=== PATIENT | female | born 1940 | race Caucasian/White ===

== ENCOUNTER 2019-01-09 19:26 | Inpatient (IN) | payer MEDICARE, OTHER ==
--- NOTE | ~2019-01-09 | HEMODYNAMI ---
PATIENT:ALEIDA COOL MEDICAL RECORD: [id number] : 40 LOCATION:[facility] D.2117 ADMISSION DATE: 01/10/19 Generatedon:01/10/201916:32 Patient name: ALEIDA COOL Patient #: [id number] SSN: DO B: 1940 Date of study: 01/10/2019 Page: Of Hemodynamic Procedure Report Patient Data Patient Demographics Procedure consent was obtained First Name: ALEIDA Gender: Female Last Name: TRAVON : 1940 Patient #: [id number] Age: 78 year(s) Race: Unknown Additional ID: [id number] Contact details Address: [address] [place] [address] State: [place] City: [place] Zip code: [address] Past Medical History Allergies Allergen Reaction Date Comments Reported Tetracycline 01/10/2019 Admission Admission Data Admission Date: 01/10/2019 Admission Time: 15:12 Room #: D.2117 Height (in.): 65 BSA: 2.02 (m2) Height (cm.): 165.1 BMI: 34.85 (kg/m2) Weight (lbs.): 209.44 Weight (kg.): 95 Lab Results Lab Result Date: 01/10/2019 Lab Result Time: 0:00 Biochemistry Name Units Result Min Max BUN mg/dl 18 --(---*)-- 7 18 Creatinine mg/dl 0.9 --(-*--)-- 0.6 1.3 CBC Name Units Result Min Max Hematocrit % 35.7 *-(----)-- 42 54 Hemoglobin g/dl 11.9 *-(----)-- 13.5 17.5 Procedure Procedure Types Cath Procedure Diagnostic Procedure [facility] w/Coronaries Sedation Charges Moderate Sedation up to 15 minutes PCI Procedure Coronary Stent Coronary Stent Initial Procedure Description Procedure Date Procedure Date: 01/10/2019 Procedure Start Time: 16:13 Procedure End Time: 16:31 Procedure Staff Name Function Issac Diamond MD Performing Physician Ammy Chen RT Monitor Marc De León RT Scrub Omayra Johns RN Nurse Procedure Data Cath Procedure Fluoroscopy Diagnostic fluoroscopy Total fluoroscopy Time: 4.2 time: 4.2 min min Diagnostic fluoroscopy Total fluoroscopy dose: 698 dose: 698 mGy mGy Contrast Material Contrast Material Type Amount (ml) Isovue 300 95 Entry Location Entry Primary Successful Side Size Upsize Upsize Entry Closure Hunter ccessful Closure Location (Fr) 1 (Fr) 2 (Fr) Remarks Device Remarks Radial Right 6 Fr Mechanical artery Short Compression Estimated blood loss: 10 ml Diagnostic catheters Device Type Used For End Catheter Placement DIAGNOSTIC [place] 110cm 5 Procedure Fr catheter ([id number]) Procedure Complications No complications Procedure Medications Medication Administration Route Dosage Oxygen etCO2 Nasal cannula 2 l/min Lidocaine 2% added to field 20 Heparin Flush Bag added to field 2 bags (1000units/500ml NS) 0.9% NaCl I.V. 100 ml/hr Radial Cocktail I.A. 1 syringe (Verapamil 2mg/Nitro 400mcg/Heparin 1500units) Versed I.V. 1 mg Fentanyl I.V. 50 mcg Versed I.V. 1 mg Fentanyl I.V. 50 mcg Heparin Bolus I.V. 4000 units Hemodynamics Rest BSA: 2.02 (m2) HGB: 11.9 (g/dl) O2 Consumption: Estimated: 180.2 (ml/min) O2 Con sumption indexed: Estimated:89.21 (ml/min/m) Heart Rate: 67 (bpm) Snapshots Pre Cath Intra NCS Post Cath Vital Signs Time Heart Resp SPO2 etCO2 NIBP (mmHg) Rhythm Pain Sedation Rate (ipm) (%) (mmHg) Status Level (bpm) 16:03:49 68 16 97 31.9 181/87(152) NSR 0 (11) 10(A) , No pain 16:08:13 66 11 95 34.8 154/74(122) NSR 0 (11) 10(A) , No pain 16:12:25 64 15 95 37.1 140/79(117) NSR 0 (11) 9(A) , No pain 16:16:37 64 14 95 14.8 115/63(88) NSR 0 (11) 9(A) , No pain 16:20:39 65 15 95 16.7 129/67(118) NSR 0 (11) 9(A) , No pain 16:25:40 67 14 94 14.8 155/81(118) NSR 0 (11) 10(A) , No pain 16:29:50 67 11 95 34.1 166/87(138) NSR 0 (11) 10(A) , No pain Medications Time Medication Route Dose Verified Delivered Reason Not es Effectiveness by by 16:03:37 Oxygen etCO2 2 l/min Issac Buffie used for Nasal Dara Johns RN procedure cannula 16:04:00 Lidocaine 2% added 20ml Issac Issac for local to vial Dara Diamond MD anesthetic field 16:04:07 Heparin Flush added 2 bags Issacrachel Davenport used for Bag to Dara Diamond MD procedure (1000units/500ml field NS) 16:04:22 0.9% NaCl I.V. 100 Issac Cutler Per physician ml/hr Dara Johns RN 16:10:32 Versed I.V. 1 mg Issac Cutler for sedation Dara Johns RN 16:10:37 Fentanyl I.V. 50 mcg Issac Cutler for sedation Dara Johns RN 16:14:36 Radial Cocktail I.A. 1 Issac Issac for (Verapamil syringe Dara Diamond MD vasodilation 2mg/Nitro 400mcg/Heparin 1500units) 16:19:24 Versed I.V. 1 mg Issac Clarkeie for sedation Dara Johns RN 16:19:28 Fentanyl I.V. 50 mcg Issac Cutler for sedation Dara Johns RN 16:19:36 Heparin Bolus I.V. 4000 Issac Clarkeie for selina ified units Dara Johns RN anticoagulation with dr diamond Procedure Log Time Note 15:36:38 Signed procedure consent form obtained from patient. 15:36:39 Diagnostic Cath status Urgent 15:36:40 Time tracking: Regular hours (M-F 7:00 - 5:00) 15:36:45 Plan of Care:Hemodynamics will remain stable., Cardiac rhythm will remain stable., Comfort level will be maintained., Respiratory function will remain adequate., Patient/ family verbilizes understanding of procedure., Procedure tolerated without complication., Recovers from procedure without complications.. 15:37:51 Marc De León RT(R) sent for patient. Start room use. 15:40:38 Lab Result : BUN 18 mg/dl 15:40:38 Lab Result : Creatinine 0.9 mg/dl 15:40:38 Lab Result : Hemoglobin 11.9 g/dl 15:40:38 Lab Result : Hematocrit 35.7 % 15:40:59 Patient allergic to Tetracycline 15:41:15 Patient Weight : 209.44 lbs 15:41:19 Patient Height : 65 inches 15:54:28 Patient received from Med/Surg to CCL 1 Alert and oriented. Tansferred to table in Supine position. 15:54:30 Warm blankets applied, and abelardo hugger turned on for patient comfort. 15:54:31 Correct patient and procedure confirmed by team. 15:54:32 ECG and BP/O2 sat monitors applied to patient. 16:01:37 Vital chart was started 16:03:37 Oxygen 2 l/min etCO2 Nasal cannula was administered by Omayra Johns RN; used for procedure; 16:04:00 Lidocaine 2% 20ml vial added to field was administered by Issac Diamond MD; for local anesthetic; 16:04:07 Heparin Flush Bag (1000units/500ml NS) 2 bags added to field was administered by Issac Diamond MD; used for procedure; 16:04:22 0.9% NaCl 100 ml/hr I.V. was administered by Omayra Johns RN; Per physician; 16:05:55 Baseline sample Acquired. 16:05:58 Rhythm: sinus rhythm 16:06:00 Full Disclosure recording started 16:06:01 Pre-procedure instructions explained to patient. 16:06:02 Pre-op teaching completed and patient verbalized understanding. 16:06:04 Family in patients room. 16:06:11 Patient NPO since Midnight. 16:06:14 Is patient on blood thinner?Yes 16:06:20 ACC The patient was administered the following blood thiners within the last 24 hours: ACCPlavix 16:06:23 Patient diabetic? Yes. 16:06:24 If diabetic: On Metformin? Yes 16:06:27 If on Metformin: Last Dose? 01/09/2019 16:06:32 Previous problem with sedation/anesthesia? No ? 16:06:34 Snore? Yes 16:06:36 Sleep apnea? No 16:06:37 Deviated septum? No 16:06:49 Opens mouth fully? Yes 16:06:50 Sticks out tongue? Yes 16:06:53 Airway obstruction? No ? 16:06:56 Dentures? No ? 16:07:01 Modified Florentino's test Ulnar < 7 seconds 16:07:04 Patient pain scale 0/10 ?. 16:07:08 IV patent on arrival in left antecubital with 0.9% NaCl at [facility]. 16:07:11 Lab results completed and on chart. 16:07:15 Right Radial & Right Groin area was prepped with chlora-prep and draped in sterile fashion 16:07:15 Alarms reviewed by R. N. 16:07:16 Sharps counted by scrub and verified by R.N. 16:07:19 Use device set Radial Dx or PCI 16:07:20 ACIST Syringe (97578) opened to sterile field. 16:07:22 Bag Decanter (2002S) opened to sterile field. 16:07:23 ACIST Hand Control (29494) opened to sterile field. 16:07:23 ACIST Manifold (40391) opened to sterile field. 16:07:24 Tegaderm 4 x 4 (1626W) opened to sterile field. 16:07:26 Medline Cath Pack ([id number]) opened to sterile field. 16:07:26 DIAGNOSTIC WIRE .035 260cm J wire (001941) opened to sterile field. 16:07:27 MBrace Wrist Support ([id number]) opened to sterile field. 16:07:28 SHEATH 6FR Slender (801060) opened to sterile field. 16:10:21 --------ALL STOP TIME OUT------ 16:10:22 Final Timeout: patient, procedure, and site verified with staff and physician. All members of the team are in agreement. 16:10:23 Right Radial & Right Groin site verified by team. 16:10:26 Maximum allowable Isovue 300 dose 300ml. Physician notified. (300ml for normal creatinines. For patients with creatinine of 1.7 or higher multiply weight(kg) x 5 divided by creatinine.) 16:10:31 Fire Safety Assessment: A--An alcohol-based skin anteseptic being used preoperatively., C--Open oxygen or nitrous oxide is being used., D--An ESU, laser, or fiber-optic light is being used. 16:10:32 Versed 1 mg I.V. was administered by Omayra Johns RN; for sedation; 16::34 Physical assessment completed. ASA score P 2 - A patient with mild systemic disease as per Issac Diamond MD. 16:10:37 Fentanyl 50 mcg I.V. was administered by Omayra Johns RN; for sedation; 16:10:37 Sedation plan: IV Moderate Sedation Medication:Versed, Fentanyl 16:13:24 Procedure started. 16:13:28 Zero performed for pressure channel P1 16:13:38 Local anesthetic to right radial artery with Lidocaine 2% by Issac Diamond MD.INITIAL ACCESS ONLY 16:13:57 A 6 Fr Short sheath was inserted into the Right Radial artery 16:14:29 A DIAGNOSTIC [place] 110cm 5 Fr catheter ([id number]) was advanced over the wire and used for Procedure. 16:14:36 Radial Cocktail (Verapamil 2mg/Nitro 400mcg/Heparin 1500units) 1 syringe I.A. was administered by Issac Diamond MD; for vasodilation; 16:15:16 LV gram done using RAY 16:15:18 Injector settings: Ml/sec: 5, Volume: 15, 16:15:32 EF : 55 % 16:16:34 LCA angiography performed. 16:17:03 RCA angiography performed. 16:17:06 Catheter exchanged over wire. 16:18:24 GUIDE 6FR AR 2.0 SH catheter ([id number]) opened to sterile field. 16:18:31 INFLATOR Merit BasixCompak (DE2150) opened to sterile field. 16:18:31 CHOICE PT Extra Support 182cm wire ([id number]) opened to sterile field. 16:18:42 6 Fr AR 2 SH guide catheter was inserted over the wire 16:19:24 Versed 1 mg I.V. was administered by Omayra Johns RN; for sedation; 16::28 Fentanyl 50 mcg I.V. was administered by Omayra Johns RN; for sedation; 16:19:34 CHOICE ES 182 wire advanced. 16:19:36 Heparin Bolus 4000 units I.V. was administered by Omayra Johns RN; for anticoagulation; verified with dr diamond 16:19:36 Wire advanced across lesion. 16:21:01 Inflate balloon Inflation number: 1 A EUPHORA 2.5 x 30 Balloon ([id number]) was prepped and advanced across the Mid RCA , then inflated to 9 TAMMI for 0:00 (min:sec) . 16:21:15 Inflation number: 2 The EUPHORA 2.5 x 30 Balloon ([id number]) was reinflated across the Mid RCA , to 11 TAMMI for 0:00 (min:sec) . 16:21:21 Balloon removed over the wire. 16:23:01 Place stent Inflation Number: 3 A FRIDA RX 2.5 x 38 stent ([id number]) was prepped and advanced across the Mid RCA . The stent was deployed at 13 TAMMI for 0:00 (min:sec) . 16:23:20 Stent catheter was removed intact over wire. 16:24:37 Place stent Inflation Number: 4 A FRIDA RX 2.5 x 18 stent ([id number]) was prepped and advanced across the Mid RCA . The stent was deployed at 13 TAMMI for 0:00 (min:sec) . 16:25:12 Stent catheter was removed intact over wire. 16:26:41 Place stent Inflation Number: 5 A FRIDA RX 2.5 x 30 stent ([id number]) was prepped and advanced across the Mid RCA . The stent was deployed at 19 TAMMI for 0:00 (min:sec) . 16:27:49 Stent catheter was removed intact over wire. 16:27:51 Wire removed. 16:27:52 Guide catheter removed. 16:28:13 TR BAND Standard ([id number]) opened to sterile field. 16:28:20 Sheath removed intact; hemostasis achieved with Mechanical Compression to the Right Radial artery. 16:28:22 Procedure ended.(Physican Out) 16:29:46 Fluoroscopy time 04.20 minutes. 16:29:50 Fluoroscopy dose: 698 mGy 16:29:50 Flurop Dose total: 698 16:29:54 Contrast amount:Isovue 300 95ml. 16:29:55 Sharps counted by scrub and verified by R.N. 16:29:57 TR band inflated with 12cc of air. 16:30:00 Post-procedure physical assessment completed. ASA score P 2 - A patient with mild systemic disease as per Issac Diamond MD. 16:30:03 Post procedure rhythm: sinus rhythm 16:30:06 Estimated blood loss: 10 ml 16:30:14 Post procedure instruction explained to patient.Patient verbalizes understanding. 16:30:14 Patient needs reinforcement of post procedure teaching. 16:30:34 Procedure type changed to Cath procedure, Diagnostic procedure, LHC, LHC w/Coronaries, Sedation Charges, Moderate Sedation up to 15 minutes, PCI procedure, Coronary Stent, Coronary Stent Initial 16:31:13 Procedure and supply charges have been captured, reviewed, submitted and are correct. 16:31:15 Procedure Complication : No complications 16:31:17 Vital chart was stopped 16:31:18 See physician's report for complete and final results. 16:31:20 Report given to Med II. 16:31:25 Patient transfered to Med II with Bed. 16:31:28 Procedure ended. 16:31:28 Full Disclosure recording stopped 16:31:30 End room use (Document Last) Intervention Summary Intervention Notes Time ActionType Lesion and Equipment Used Action# Pressure Duration Attributes 16:21:01 Inflate Mid RCA EUPHORA 2.5 x 1 9 00:00 balloon 30 Balloon ([id number]) 16:21:15 Reinflate Mid RCA EUPHORA 2.5 x 2 11 00:00 balloon 30 Balloon ([id number]) 16:23:01 Place stent Mid RCA FRIDA RX 2.5 x 3 13 00:00 38 stent ([id number]) 16:24:37 Place stent Mid RCA FRIDA RX 2.5 x 4 13 00:00 18 stent ([id number]) 16:26:41 Place stent Mid RCA FRIDA RX 2.5 x 5 19 00:00 30 stent ([id number]) Device Usage Item Name Manufacture Quantity Catalog Number Hospital Part Current M inimal Lot# / Charge Number Stock Stock Serial# Code ACIST Syringe Acist 1 30365 817334 220430 605042 2 0 (66229) Medical Systems Inc Bag Decanter Microtek 1 361376 39964 471590 5 () Medical Inc. ACIST Hand Acist 1 32754 378502 033903 573786 5 Control Medical (48701) Systems Inc ACIST Manifold Acist 1 66145 196491 050272 338853 5 (31172) Medical Systems Inc Tegaderm 4 x 4 3M 1 1626W 733636 154691 934347 5 (1626W) Medline Cath Medline 1 [id number] 117517 68497 818154 5 Pack ([id number]) DIAGNOSTIC St Shashi 1 778172 452360 384074 888007 3 0 WIRE .035 260cm J wire (760475) MBrace Wrist Advanced 1 140-0250-00 315379 64345 263111 5 Support Vascular ([id number]) Dynamics SHEATH 6FR Terumo 1 [id number] 598594 694376 591747 5 Slender (80-1060) DIAGNOSTIC Terumo 1 40-4063 048367 161397 709384 5 [place] 110cm 5 Fr catheter (746811) GUIDE 6FR AR Medtronic 1 [id number] 210583 60361 511961 1 2.0 SH catheter ([id number]) INFLATOR Merit Merit 1 GF6118 210714 786468 542210 1 5 [place]im[place] (NY2151) CHOICE PT Bern 1 [id number] 086127 070111 415057 5 Extra Support Scientific 182cm wire ([id number]) EUPHORA 2.5 x Medtronic 1 [id number] 778397 362731 734260 5 [id number] 30 Balloon ([id number]) FRIDA RX 2.5 x Medtronic 1 [id number] 721884 1864010 103215 5 [id number] 38 stent ([id number]) FRIDA RX 2.5 x Medtronic 1 [id number] 053512 0933349 726137 5 [id number] 18 stent ([id number]) FRIDA RX 2.5 x Medtronic 1 [id number] 052371 7413938 603142 5 [id number] 30 stent ([id number]) TR BAND Terumo 1 [id number] 378558 192632 882742 4 0 Standard ([id number]) Signature Audit [place] Stage Time Signature Unsigned Intra-Procedure 01/10/2019 Ammy Chen 4:32:56 PM RT(R) Signatures Monitor : Ammy April Signature : RT Date : Time : [place] [address] [place] [address]
--- NOTE | ~2019-01-09 | HEMODYNAMI ---
PATIENT:ALEIDA COOL MEDICAL RECORD: [id number] : 40 LOCATION:[facility] D.2307 ADMISSION DATE: 01/10/19 Generatedon:01/12/201913:25 Patient name: ALEIDA COOL Patient #: [id number] SSN: DO B: 1940 Date of study: 01/12/2019 Page: Of Hemodynamic Procedure Report Patient Data Patient Demographics Procedure consent was obtained First Name: ALEIDA Gender: Female Last Name: TRAVON : 1940 Patient #: [id number] Age: 78 year(s) Race: Unknown Additional ID: [id number] Contact details [address]: [address] [place] [address] State: [place] City: [place] Zip code: [address] Past Medical History Allergies Allergen Reaction Date Comments Reported Tetracycline 01/10/2019 Other allergy 01/12/2019 tetracycline Admission Admission Data Admission Date: 01/10/2019 Admission Time: 15:12 Room #: D.2307 Height (in.): 65 BSA: 2.02 (m2) Height (cm.): 165.1 BMI: 34.85 (kg/m2) Weight (lbs.): 209.44 Weight (kg.): 95 Lab Results Lab Result Date: 01/12/2019 Lab Result Time: 0:00 Biochemistry Name Units Result Min Max BUN mg/dl 14 --(--*-)-- 7 18 Creatinine mg/dl 0.9 --(-*--)-- 0.6 1.3 CBC Name Units Result Min Max Hemoglobin g/dl 11.4 *-(----)-- 13.5 17.5 Procedure Procedure Types Cath Procedure Diagnostic Procedure PCI Procedure Coronary Stent Coronary Stent Initial Procedure Description Procedure Date Procedure Date: 01/12/2019 Procedure Start Time: 13:07 Procedure End Time: 13:25 Procedure Staff Name Function Kim Barnes RT Scrub Omayra Johns RN Nurse Bret Santos MD Performing Physician Marc De León RT Monitor Procedure Data Cath Procedure Fluoroscopy Diagnostic fluoroscopy Total fluoroscopy Time: 3.1 time: 3.1 min min Diagnostic fluoroscopy Total fluoroscopy dose: 565 dose: 565 mGy mGy Contrast Material Contrast Material Type Amount (ml) Isovue 300 46 Entry Location Entry Primary Successful Side Size Upsize Upsize Entry Closure Succes sful Closure Location (Fr) 1 (Fr) 2 (Fr) Remarks Device Remarks Femoral Right 6 Fr Exoseal artery Short Estimated blood loss: 10 ml Procedure Complications No complications Procedure Medications Medication Administration Route Dosage Oxygen etCO2 Nasal cannula 2 l/min Lidocaine 2% added to field 20 Heparin Flush Bag added to field 2 bags (1000units/500ml NS) 0.9% NaCl I.V. 100 ml/hr Versed I.V. 1 mg Fentanyl I.V. 50 mcg Heparin Bolus I.V. 4000 units Versed I.V. 1 mg Fentanyl I.V. 50 mcg Hemodynamics Rest BSA: 2.02 (m2) HGB: 11.4 (g/dl) O2 Consumption: Estimated: 201.67 (ml/min) O2 Co nsumption indexed: Estimated:99.84 (ml/min/m) Heart Rate: 95 (bpm) Snapshots Pre Cath Intra NCS Post Cath Vital Signs Time Heart Resp SPO2 etCO2 NIBP (mmHg) Rhythm Pain Sedation Rate (ipm) (%) (mmHg) Status Level (bpm) 13:01:16 97 28 96 0 150/70(114) NSR 0 (11) 10(A) , No pain 13:06:54 96 19 95 0 162/81(117) NSR 0 (11) 10(A) , No pain 13:11:12 90 11 94 0 143/70(100) NSR 0 (11) 9(A) , No pain 13:16:19 89 12 95 0 134/67(108) NSR 0 (11) 9(A) , No pain 13:20:35 95 13 96 0 147/71(98) NSR 0 (11) 9(A) , No pain 13:24:51 98 14 96 0 147/69(117) NSR 0 (11) 10(A) , No pain Medications Time Medication Route Dose Verified Delivered Reason Notes Effectiveness by by 13:00:51 Oxygen etCO2 2 Bret Cutler used for Nasal l/min St Dae Johns RN procedure cannula 13:01:02 Heparin Flush added 2 Bret Bret used for Bag to bags [facility] procedure (1000units/500ml field MD WHITE NS) 13:01:10 0.9% NaCl I.V. 100 Bret Cutler Per physician ml/hr St Dae Johns RN, MD 13:01:57 Lidocaine 2% added 20ml Bret Queen for local to vial [facility] anesthetic field MD WHITE 13:08:18 Versed I.V. 1 mg Bret Cutler for sedation St Dae Johns RN, MD 13:08:24 Fentanyl I.V. 50 Bret Clarkeie for sedation mcg St Dae Johns RN, MD 13:10:57 Heparin Bolus I.V. 4000 Bret Clarkeie for verif ied units St Dae Johns RN anticoagulation with dr MD augustin 13:14:16 Versed I.V. 1 mg Bret Clarkeie for sedation St Dae Johns RN, MD 13:14:20 Fentanyl I.V. 50 Bret Clakreie for sedation mcg St Dae Johns RN, MD Procedure Log Time Note 12:27:13 Patient Weight : 209.44 lbs 12:27:13 Patient Height : 65 inches 12:27:26 Omayra Johns RN sent for patient. Start room use. 12:27:27 Time tracking: Regular hours (M-F 7:00 - 5:00) 12:27:31 Plan of Care:Hemodynamics will remain stable., Cardiac rhythm will remain stable., Comfort level will be maintained., Respiratory function will remain adequate., Patient/ family verbilizes understanding of procedure., Procedure tolerated without complication., Recovers from procedure without complications.. 12:32:02 Lab Result : BUN 14 mg/dl 12:32:02 Lab Result : Hemoglobin 11.4 g/dl 12:32:02 Lab Result : Creatinine 0.9 mg/dl 12:32:02 Hemodynamic formulas in Rest were re-calculated based on hemoglobin value from 01/12/2019 12:00:00 AM 12:49:14 Patient received from ICU to [facility] 2 Alert and oriented. Tansferred to table in Supine position. 12:49:15 Warm blankets applied, and abelardo hugger turned on for patient comfort. 12:49:16 Correct patient and procedure confirmed by team. 12:49:18 Signed procedure consent form obtained from patient. 12:49:19 ECG and BP/O2 sat monitors applied to patient. 12:49:20 Pre-procedure instructions explained to patient. 12:49:20 Pre-op teaching completed and patient verbalized understanding. 12:58:55 Vital chart was started 12:58:57 Baseline sample Acquired. 12:59:00 Rhythm: sinus rhythm 12:59:02 Full Disclosure recording started 12:59:22 H&P Date Dictated: 01/10/2019 Within 30 days and on chart.. 12:59:25 Family in patients room. 12:59:44 Patient NPO since Midnight. 13:00:03 Patient allergic to Other allergytetracycline 13:00:06 Is the patient allergic to Iodine/contrast media? No. 13:00:51 Oxygen 2 l/min etCO2 Nasal cannula was administered by Omayra Johns RN; used for procedure; 13:01:02 Heparin Flush Bag (1000units/500ml NS) 2 bags added to field was administered by Bret Santos MD; used for procedure; 13:01:10 0.9% NaCl 100 ml/hr I.V. was administered by Omayra Johns RN; Per physician; 13:01:57 Lidocaine 2% 20ml vial added to field was administered by Bret Santos MD; for local anesthetic; 13:03:18 Is patient on blood thinner?Yes 13:03:21 ACC The patient was administered the following blood thiners within the last 24 hours: ACCPlavix 13:03:43 Patient diabetic? Yes. 13:03:44 If diabetic: On Metformin? No 13:04:21 Previous problem with sedation/anesthesia? No ? 13:04:26 Snore? Yes 13:04:28 Sleep apnea? No 13:04:29 Deviated septum? No 13:04:30 Opens mouth fully? Yes 13:04:31 Sticks out tongue? Yes 13:04:36 Airway obstruction? No ? 13:04:38 Dentures? No ? 13:04:41 Pre procedure: right dorsailis pedis pulse 2+ Normal; easily identifiable; not easily obliterated 13:04:43 Patient pain scale 0/10 ?. 13:04:50 IV patent on arrival in left forearm with 0.9% NaCl at [facility]. 13:04:57 Lab results completed and on chart. 13:05:08 Right groin area was prepped with chlora-prep and draped in sterile fashion 13:05:09 Alarms reviewed by R. N. 13:05:10 Sharps counted by scrub and verified by R.N. 13:05:15 ACIST Syringe (11545) opened to sterile field. 13:05:16 Bag Decanter (2002S) opened to sterile field. 13:05:16 Medline Cath Pack ([id number]) opened to sterile field. 13:05:17 ACIST Hand Control (06685) opened to sterile field. 13:05:18 ACIST Manifold (37467) opened to sterile field. 13:05:19 Tegaderm 4 x 4 (1626W) opened to sterile field. 13:05:20 DIAGNOSTIC WIRE .035 260cm J wire (780017) opened to sterile field. 13:07:16 Physician arrived 13:07:16 --------ALL STOP TIME OUT------ 13:07:17 Final Timeout: patient, procedure, and site verified with staff and physician. All members of the team are in agreement. 13:07:18 Right groin site verified by team. 13:07:22 Maximum allowable Isovue 300 dose 300ml. Physician notified. (300ml for normal creatinines. For patients with creatinine of 1.7 or higher multiply weight(kg) x 5 divided by creatinine.) 13:07:24 Fire Safety Assessment: A--An alcohol-based skin anteseptic being used preoperatively., C--Open oxygen or nitrous oxide is being used., D--An ESU, laser, or fiber-optic light is being used. 13:07:27 Physical assessment completed. ASA score P 2 - A patient with mild systemic disease as per Bret Santos MD. 13:07:30 Sedation plan: IV Moderate Sedation Medication:Versed, Fentanyl 13:07:33 Procedure started. 13:07:36 Local anesthetic to right femoral artery with Lidocaine 2% by Bret Santos MD.INITIAL ACCESS ONLY 13:07:48 A 6 Fr Short sheath was inserted into the Right Femoral artery 13:07:59 IV Extension Set opened to sterile field. 13:08:00 WHISPER 300cm guide wire ([id number]) opened to sterile field. 13:08:01 INFLATOR Merit Simonak (JJ3270) opened to sterile field. 13:08:01 SHEATH 6FR [place] (RDW769) opened to sterile field. 13:08:18 Versed 1 mg I.V. was administered by Omayra Johns RN; for sedation; 13:08:24 Fentanyl 50 mcg I.V. was administered by Omayra Johns RN; for sedation; 13:08:59 Zero performed for pressure channel P1 13:10:50 GUIDE 6FR XBLAD 3.5 catheter ([id number]) opened to sterile field. 13:10:57 Heparin Bolus 4000 units I.V. was administered by Omayra Johns RN; for anticoagulation; verified with dr augustin 13:10:58 6 Fr xblad 3.5 guide catheter was inserted over the wire 13:13:15 whisper wire advanced. 13:14:16 Versed 1 mg I.V. was administered by Omayra Johns RN; for sedation; 13:14:20 Fentanyl 50 mcg I.V. was administered by Omayra Johns RN; for sedation; 13:14:36 Wire advanced across lesion. 13:17:07 Place stent Inflation Number: 1 A FRIDA OTW 2.5 x 15 stent ([id number]) was prepped and advanced across the Dist LAD . The stent was deployed at 14 TAMMI for 0:45 (min:sec) . 13:17:11 Stent catheter was removed intact over wire. 13:19:42 Place stent Inflation Number: 1 A FRIDA OTW 3.0 x 12 stent ([id number]) was prepped and advanced across the Prox LAD . The stent was deployed at 14 TAMMI for 0:45 (min:sec) . 13:20:13 Stent catheter was removed intact over wire. 13:20:14 Wire removed. 13:20:14 Guide catheter removed. 13:20:35 EXOSEAL 6Fr (EX600) opened to sterile field. 13:21:18 Sheath removed intact; hemostasis achieved with Exoseal to the Right Femoral artery. 13:21:20 Procedure ended.(Physican Out) 13:21:54 Fluoroscopy time 03.10 minutes. 13:22:06 Fluoroscopy dose: 565 mGy 13:22:06 Flurop Dose total: 565 13:22:21 Contrast amount:Isovue 300 46ml. 13:22:22 Sharps counted by scrub and verified by R.N. 13:22:25 Insertion/operative site no bleeding no hematoma. 13:22:29 Post-op/insertion site Right Femoral artery dressed using a 4 x 4 and Tegaderm. 13:22:35 Post right femoral artery:stable, soft, clean and dry 13:22:37 Post Procedure Pulses reassessed and unchanged 13:22:44 Post-procedure physical assessment completed. ASA score P 2 - A patient with mild systemic disease as per Bret Santos MD. 13:22:46 Post procedure rhythm: unchanged. 13:22:49 Estimated blood loss: 10 ml 13:22:50 Post procedure instruction explained to patient.Patient verbalizes understanding. 13:22:51 Patient needs reinforcement of post procedure teaching. 13:23:49 Procedure type changed to Cath procedure, Diagnostic procedure, PCI procedure, Coronary Stent, Coronary Stent Initial 13:24:45 Procedure and supply charges have been captured, reviewed, submitted and are correct. 13:24:47 Procedure Complication : No complications 13:24:49 Vital chart was stopped 13:24:51 See physician's report for complete and final results. 13:24:59 Report given to PCU. 13:25:02 Patient transfered to PCU with Stretcher. 13:25:03 Procedure ended. 13:25:03 Full Disclosure recording stopped 13:25:08 End room use (Document Last) Intervention Summary Intervention Notes Time ActionType Lesion and Equipment Action# Pressure Duration Attributes Used 13:17:07 Place stent Dist LAD FRIDA OTW 2.5 1 14 00:45 x 15 stent ([id number]) 13:19:42 Place stent Prox LAD FRIDA OTW 3.0 1 14 00:45 x 12 stent ([id number]) Device Usage Item Name Manufacture Quantity Catalog Hospital Part Current Mini mal Lot# / Number Charge Number Stock Stock Serial# Code ACIST Syringe Acist 1 [id number] [id number] [id number] [id number] 20 (88539) Medical Systems Inc Bag Decanter Microtek 1 858763 30387 308884 5 () Medical Inc. Medline Cath Medline 1 [id number] 712649 39516 779184 5 Pack ([id number]) ACIST Hand Acist 1 95213 647534 162444 381134 5 Control Medical (09629) Systems Inc ACIST Acist 1 36240 105539 042805 752954 5 [facility] Medical (62148) Systems Inc Tegaderm 4 x 3M 1 1626W 980166 163632 817279 5 4 (1626W) DIAGNOSTIC St Shashi 1 513504 286487 542825 925351 30 WIRE .035 260cm J wire (879652) IV Extension Hospira 1 14489-05 204553 48414 248154 5 Set WHISPER 300cm Negrete 1 [id number] 833731 368551 689711 5 guide wire Vascular (9770057NL) INFLATOR Merit 1 BH3268 431790 932030 572386 15 [employer] BasixCompak (BS5770) SHEATH 6FR Terumo 1 PDH180 159293 571877 526710 40 [place] (ASF156) GUIDE 6FR Cardinal 1 [id number] 650777 798449 007260 10 XBLAD 3.5 Health catheter ([id number]) FRIDA OTW 2.5 Medtronic 1 [id number] 170344 43246 703387 5 [id number] x 15 stent ([id number]) FRIDA OTW 3.0 Medtronic 1 [id number] 439751 0435544 599705 5 [id number] x 12 stent ([id number]) EXOSEAL 6Fr Cardinal 1 EX600 627906 990552 253802 10 (EX600) Health Signature Audit [place] Stage Time Signature Unsigned Intra-Procedure 01/12/2019 Marc De León 1:25:49 PM RT(R) Signatures Monitor : Marc De León RT Signature : Date : Time : [facility] [address] [place] [address]
[2019-01-09] MEDS ORDERED: GLUCOPHAGE1000 MG PO (19:47)
[2019-01-09] MEDS ORDERED: LEVO-T125 MCG PO (19:48)
[2019-01-09] MEDS ORDERED: TOPROL XL100 MG PO (19:48)
[2019-01-09] MEDS ORDERED: JANUVIA100 MG PO (19:48)
[2019-01-09] MEDS ORDERED: LISINOPRIL40 MG PO (19:49)
[2019-01-09] MEDS ORDERED: CATAPRES0.2 MG (19:49)
[2019-01-09] MEDS ORDERED: PLAVIX75 MG PO (19:49)
[2019-01-09] MEDS ORDERED: GLIPIZIDE10 MG PO (19:49)
[2019-01-09] MEDS ORDERED: NORVASC2.5 MG PO (19:49)
[2019-01-09 20:12] VITALS: BP 226/84
[2019-01-09 20:54] LABS: APTT 26.3 SECONDS (22.8-39.4); INR 1.01 (0.85-1.17); PROTIME 12.8 SECONDS (11.6-15.0)
[2019-01-09 20:56] LABS: BASOPHILS 0.2 % (0-2); EOSINOPHILS 3.1 % (0-7); HEMATOCRIT 39.5 % (36.0-48.0); HEMOGLOBIN 13.4 g/dL (12-16); IMMATURE GRANULOCYTES 0.2 % (0-5); LYMPHOCYTES 12.2 % (15-50); MCH 30.6 pg (26.0-34.0); MCHC 33.9 g/dL (31.0-37.0); MCV 90.2 fL (80.0-100.0); MEAN PLATELET VOLUME 10.9 fL (7.4-10.4); MONOCYTES 4.6 % (2-11); NEUTROPHILS 79.7 % (40-80); PLATELET COUNT 101 10x3/uL (130-400); RBC 4.38 10x6/uL (4.00-5.40); RDW 13.6 % (11.5-14.5); WBC 5.9 10x3/uL (4.8-10.8)
[2019-01-09 21:01] LABS: ALBUMIN 3.5 g/dL (3.4-5.0); ALKALINE PHOSPHATASE 95 U/L (46-116); ALT (SGPT) 52 U/L (10-68); CALC OSMOLALITY 284 mosm/kg (275-300); CALCIUM 9.3 mg/dL (8.5-10.1); CARBON DIOXIDE 27.4 mmol/L (21.0-32.0); CHLORIDE - SERUM 103 mmol/L (98-107); CREATININE - SERUM 0.8 mg/dL (0.6-1.3); GLUCOSE 121 mg/dL (74-106); POTASSIUM - SERUM 4.2 mmol/L (3.5-5.1); PROTEIN - SERUM 7.2 g/dL (6.4-8.2); SODIUM 142 mmol/L (136-145); UREA NITROGEN 15 mg/dL (7-18); eGFR NON AFRICAN AMERICAN 73 mL/min (90-120)
[2019-01-09 21:12] LABS: CKMB 0.6 U/L (0.0-3.6); CREATINE KINASE 42 UL (21-215); LIPASE 188 U/L (73-393); MAGNESIUM - SERUM 1.6 mg/dL (1.8-2.4)
--- NOTE | 2019-01-09 21:39 | NUR ---
PT IN CT
[2019-01-10 03:29] VITALS: BP 134/77; BMI 35.0
[2019-01-10 04:00] VITALS: BP 147/74
[2019-01-10 05:59] LABS: BASOPHILS 0.2 % (0-2); EOSINOPHILS 1.1 % (0-7); HEMATOCRIT 35.7 % (36.0-48.0); HEMOGLOBIN 11.9 g/dL (12-16); LYMPHOCYTES 18.2 % (15-50); MCH 29.9 pg (26.0-34.0); MCHC 33.3 g/dL (31.0-37.0); MCV 89.7 fL (80.0-100.0); MEAN PLATELET VOLUME 10.6 fL (7.4-10.4); MONOCYTES 5.8 % (2-11); NEUTROPHILS 74.7 % (40-80); PLATELET COUNT 100 10x3/uL (130-400); RBC 3.98 10x6/uL (4.00-5.40); RDW 13.7 % (11.5-14.5); WBC 5.7 10x3/uL (4.8-10.8)
[2019-01-10 06:17] LABS: AMYLASE - SERUM 83 U/L (25-115); CALCIUM 8.6 mg/dL (8.5-10.1); CARBON DIOXIDE 26.4 mmol/L (21.0-32.0); CHLORIDE - SERUM 105 mmol/L (98-107); CKMB 20.4 U/L (0.0-3.6); CREATINE KINASE 204 UL (21-215); CREATININE - SERUM 0.9 mg/dL (0.6-1.3); LIPASE 126 U/L (73-393); MAGNESIUM - SERUM 1.7 mg/dL (1.8-2.4); PHOSPHOROUS 3.3 mg/dL (2.5-4.9); POTASSIUM - SERUM 4.2 mmol/L (3.5-5.1); SODIUM 140 mmol/L (136-145); UREA NITROGEN 18 mg/dL (7-18); eGFR NON AFRICAN AMERICAN 64 mL/min (90-120)
--- NOTE | 2019-01-10 06:23 | NUR ---
CRITICAL LAB CALLED TO PERI SANTANA. ORDERS RECEIVED TO CONSULT DR LEAVITT. OFFICE NOTIFIED.DR ENGLE PLUMBER ASSISTANT AND RETURNED CALL TO THIS NURSE. RESULTS REVIEWED WITH DR ENGLE. NO ORDERS RECEIVED. STATES WILL COME IN TO SEE PATIENT.TELEMENTRY SHOWS SR 66. NO DISTRESS NOTED. DAUGHTER AT BEDSIDE.
[2019-01-10 06:27] LABS: CALC OSMOLALITY 285 mosm/kg (275-300); GLUCOSE 192 mg/dL (74-106)
[2019-01-10 06:29] LABS: TROPONIN-I 7.502 ng/mL (0.000-0.060)
--- NOTE | 2019-01-10 08:02 | NUR ---
RESTING IN BED. DAUGHTER AT BEDSIDE. LUNGS CLEAR BILATERALLY IN ALL BRAND. HEART SOUNDS S1 AND S2 HEARD IN ALL BRAND. BOWEL SOUNDS ACTIVE X 4. IV TO LEFT AC PATENT WITHOUT REDNESS. SKIN INTACT WITHOUT REDNESS. TELEMETRY IN PLACE. DENIES PAIN. DENIES NEEDS. BED LOW. CALL LLANES AND PERSONAL ITEMS IN REACH. WILL CONTINUE TO MONITOR.
[2019-01-10 09:12] VITALS: BP 167/68
--- NOTE | 2019-01-10 11:00 | NUR ---
CONSENTS SIGNED FOR PROCEDURE. PATIENT TAKEN BY XRAY.
--- NOTE | 2019-01-10 11:20 | CN ---
PATIENT NAME:ALEIDA CHEN MEDICAL RECORD: [id number] : 40 LOCATION:D.[facility] ADMIT DATE: 01/10/19 ACCOUNT: [id number] CONSULTING PHYSICIAN: LILI ENGLE MD REFERRING PHYSICIAN: AUDRA BROUSSARD MD DATE OF CONSULTATION: 01/10/2019 DIAGNOSES: 1. Non-Q-wave myocardial infarction. 2. Coronary artery disease. 3. Insulin-dependent diabetes. 4. Hypertension. HISTORY OF PRESENT ILLNESS: Mrs. Chen began having chest pain, chest discomfort at home. This then progressed to nausea and vomiting. She was admitted with a diagnosis of gastritis. Her troponin was elevated to 7. She is pain free at this time. She has no previous cardiac history. Her EKG is with no significant ST-T abnormalities. Initially, her systolic blood pressure was in the 200 range with her medications being reinstituted. Her blood pressure is much better now. She is on beta-aureliano, calcium channel aureliano alpha-aureliano. PHYSICAL EXAMINATION: GENERAL APPEARANCE: Well-nourished, well-developed, appears stated age. Level of distress, comfortable. PSYCHIATRIC: Mental status, alert, normal affect. Orientation, oriented to time, place and person. EYES: Lids and conjunctiva, noninjected. No discharge, no pallor. ENT: Lips, teeth, gums, normal dentition. Oropharynx, no cyanosis, no pallor. NECK: Carotid arteries, bilateral normal upstroke, no bruits, no thrills. JUGULAR VEINS: No jugular venous pressure or distention. CERVICAL LYMPH NODES: Nontender, nonenlarged. THYROID: Not enlarged. Nontender. No nodules. LUNGS: Respiratory effort, unlabored. CHEST: Normal curvature. No thoracic deformity. No chest wall tenderness. Percussion, resonant. Auscultation, clear. No wheezes, no rales, no rhonchi. CARDIOVASCULAR: Precordial exam, nondisplaced. No heaves or pericardial thrills. Rate and rhythm, regular. Heart sounds, normal S1, normal S2. No S3, no gallop, no rub. Systolic murmur, not heard. Diastolic murmur, not heard. EXTREMITIES: No cyanosis, no edema. Peripheral pulses, full and equal in all extremities, except as noted. No bruits appreciated. ABDOMEN: Soft, nondistended. Normal aorta. No bruit. Nontender. No masses. Liver, nontender, no hepatomegaly. Spleen, nontender, no splenomegaly. MUSCULOSKELETAL: No joint tenderness. No joint swelling. No erythema. NEUROLOGICAL: Normal gait, normal strength, normal tone. SKIN: Warm and dry. OVERALL IMPRESSION: Non-Q-wave myocardial infarction. At this time, GI workup is on hold. I have spoken with Dr. Isaac. We will proceed with coronary angiography. Further care depends upon the findings of the angiography. TRANSINT:[id number] Voice Confirmation ID: [id number] DOCUMENT ID: [id number] CONSULT REPORT [id number] ALEIDA CHEN, LILI WHITE at 1120 CC: [id number] DICTATION DATE: 01/10/19 1030 FOREST LOGISTICS MANAGER: 01/10/19 1048 ADM IN [place] [id number] [place] [id number]
--- NOTE | 2019-01-10 11:44 | NUR ---
BLOOD PRESSURE 196/73. SENDY BONILLA NOTIFIED. SENDY STATED TO NOTIFY CARDIOLOGY. DR KADIE SHAY.
--- NOTE | 2019-01-10 11:55 | NUR ---
NEW ORDER FOR CLONIDINE 0.2MG X ONE DOSE PER DR ENGLE.
[2019-01-10 12:09] VITALS: BP 194/73
--- NOTE | 2019-01-10 12:14 | NUR ---
CLONIDINE AND PREOP MEDS GIVEN. URINE SAMPLE TAKEN TO LAB.
[2019-01-10 13:40] LABS: CKMB 16.3 U/L (0.0-3.6); CREATINE KINASE 222 UL (21-215)
[2019-01-10 13:50] LABS: APPEARANCE CLEAR (CLEAR); BILIRUBIN NEGATIVE (NEGATIVE); COLOR STRAW (YELLOW); GLUCOSE NEGATIVE (NEGATIVE); KETONE NEGATIVE (NEGATIVE); NITRITE NEGATIVE (NEGATIVE); PROTEIN NEGATIVE (NEGATIVE); UROBILINOGEN NORMAL (NORMAL)
--- NOTE | 2019-01-10 14:01 | NUR ---
PATIENT LYING IN BED WITH FAMILY AT BEDSIDE. STILL WAITING FOR PROCEDURE. DENIES NEEDS.
[2019-01-10 14:35] VITALS: BMI 34.9
--- NOTE | 2019-01-10 14:43 | NUR ---
FAMILY CONCERNED PATIENT STILL NOT TAKEN FOR PROCEDURE. CALLED LEAD ATG DEVELOPER. STATED WILL BE BETWEEN 1530 AND 1600. FAMILY NOTIFIED.
--- NOTE | 2019-01-10 15:35 | NUR ---
RESTING IN BED. DENIES PAIN. DENIES NEEDS.
--- NOTE | 2019-01-10 16:01 | NUR ---
PATIENT TAKEN FOR PROCEDURE. REPORT GIVEN TO ARELI MANZO ON MED 2. FAMILY TAKEN TO PATIENT'S NEW ROOM.
--- NOTE | 2019-01-10 16:55 | NUR ---
RECEIVED PT TO ROOM 2116 VIA BED, PT DROWSY BUT EASILY AROUSES TO VOICE. TR BAND TO RT HAND WITH A SMALL AMOUNT OF DRY BLOOD. LT AC INFUSING NS AT 100CC/HR. VITAL SIGNS STABLE, PLACED PT ON FREQUENT VITAL SIGNS. CALL LIGHT IN REACH, FAMILY AT BEDSIDE, NAD NOTED, WILL CONTINUE TO MONITOR.
--- NOTE | 2019-01-10 19:46 | NUR ---
RESUMING PATIENT CARE. PATIENT IS ALERT AND ORIENTED RESTING COMFORTABLY IN BED. RESPIRATIONS ARE EVEN AND UNLABORED. NO S/S OF DISTRESS. NO C/O PAIN. DENIES NEEDS. AIR REMOVED FROM TR BAND. NO ACTIVE BLEEDING. CALL LIGHT WITHIN REACH. WILL CPOC.
[2019-01-10 20:00] VITALS: BP 175/74
[2019-01-11] VITALS (15 sets, daily range): BP systolic 160–212; BP diastolic 60–96
[2019-01-11 05:40] LABS: HEMATOCRIT 32.5 % (36.0-48.0); HEMOGLOBIN 10.6 g/dL (12-16); MCH 29.4 pg (26.0-34.0); MCHC 32.6 g/dL (31.0-37.0); MCV 90.3 fL (80.0-100.0); PLATELET COUNT 88 10x3/uL (130-400)
[2019-01-11 05:45] LABS: ANION GAP 10.6 mmol/L (8-16); CARBON DIOXIDE 27.1 mmol/L (21.0-32.0); CREATININE - SERUM 0.9 mg/dL (0.6-1.3); MAGNESIUM - SERUM 1.7 mg/dL (1.8-2.4); POTASSIUM - SERUM 3.7 mmol/L (3.5-5.1)
[2019-01-11 06:09] LABS: WBC 3.7 10x3/uL (4.8-10.8)
--- NOTE | 2019-01-11 07:15 | NUR ---
RECEIVED PT IN BED AAOX4 RESP UNLABORED SKIN W/D COLOR WNL DENIES ANY DISCOMFORT OR NEEDS AT THIS TIME
--- NOTE | 2019-01-11 07:29 | NUR ---
fsbs 155 humalog 2 units given sq abd
[2019-01-11 08:12] LABS: BASOPHILS 1 % (0-2); EOSINOPHILS 9 % (0-7); LYMPHOCYTES 20 % (15-50); MONOCYTES 9 % (2-11); NEUTROPHILS 58 % (40-80); PLATELET ESTIMATE DECREASED
[2019-01-11 08:13] LABS: ANISOCYTOSIS OCC; HYPOCHROMASIA OCC
[2019-01-11 09:13] LABS: HEPATITIS C ANTIBODY <0.1 S/CO RAT (0.0-0.9)
--- NOTE | 2019-01-11 11:46 | NUR ---
FSBS 277 HUMALOG 4 UNITS SQ ABDOMEN
[2019-01-11 13:31] LABS: % SATURATION 22 % (15-55); IRON 60 ug/dl (35-150); TOTAL IRON BIND CAPACITY 263 ug/dl (260-445); UNSAT IRON BIND CAPACITY 203 ug/dl (150-375)
--- NOTE | 2019-01-11 16:19 | NUR ---
REFUSED SCD'S PER BLAIR/RN
[2019-01-11 18:50] LABS: CKMB 1.9 U/L (0.0-3.6); CREATINE KINASE 148 UL (21-215)
[2019-01-11 18:52] LABS: TROPONIN-I 15.722 ng/mL (0.000-0.060)
--- NOTE | 2019-01-11 19:50 | NUR ---
RESUMING PATIENT CARE. PATIENT IS ALERT AND ORIENTED. RESPIRATIONS ARE EVEN AND UNLABORED. NO S/S OF DISTRESS. NO C/O PAIN. CALL LIGHT WITHIN REACH. WILL CPOC.
[2019-01-11 21:44] LABS: BASOPHILS 0.3 % (0-2); EOSINOPHILS 5.4 % (0-7); HEMATOCRIT 36.3 % (36.0-48.0); HEMOGLOBIN 12.2 g/dL (12-16); IMMATURE GRANULOCYTES 0.3 % (0-5); LYMPHOCYTES 18.7 % (15-50); MCH 30.4 pg (26.0-34.0); MCHC 33.6 g/dL (31.0-37.0); MCV 90.5 fL (80.0-100.0); MEAN PLATELET VOLUME 10.8 fL (7.4-10.4); MONOCYTES 9.6 % (2-11); NEUTROPHILS 65.7 % (40-80); PLATELET COUNT 100 10x3/uL (130-400); RBC 4.01 10x6/uL (4.00-5.40); RDW 13.9 % (11.5-14.5)
[2019-01-11 21:45] LABS: WBC 6.9 10x3/uL (4.8-10.8)
--- NOTE | 2019-01-11 21:55 | NUR ---
I WAS ALERTED TO PATIENT ROOM BY THE DAUGHTER. PATIENT WAS DIAPHORETIC HAVING DIFFICULTY BREATHING AND COMPLIANTS OF CHEST PAIN VITALS OBTAINED. EKG AND RAPID RESPONSE CALLED.
--- NOTE | 2019-01-11 22:05 | NUR ---
PT ARRIVED FROM MED2 ASSESSMENT DONE SEE FLOW SHEET. ICU MONITORS IN PLACE ALARMS SET AND VERIFIED. FAMILY STATES PT DOES WAKE UP CONFUSED TRYING TO GET OUT OF BED BUT QUICLY REORIENTS. NITRO DRIP STARTED. MEDS GIVEN. PT PREVIOUS RAPID FROM FLOOR. WILL CONTINUE TO MONITOR.FAMILY ENCOURAGED TO STAY AT BEDSIDE.
[2019-01-11 22:16] LABS: CALCIUM 8.6 mg/dL (8.5-10.1); CARBON DIOXIDE 26.8 mmol/L (21.0-32.0); CHLORIDE - SERUM 106 mmol/L (98-107); CKMB 1.6 U/L (0.0-3.6); CREATINE KINASE 146 UL (21-215); CREATININE - SERUM 0.9 mg/dL (0.6-1.3); POTASSIUM - SERUM 3.7 mmol/L (3.5-5.1); SODIUM 140 mmol/L (136-145); UREA NITROGEN 15 mg/dL (7-18); eGFR NON AFRICAN AMERICAN 64 mL/min (90-120)
[2019-01-11 22:17] LABS: CALC OSMOLALITY 287 mosm/kg (275-300); GLUCOSE 251 mg/dL (74-106); TROPONIN-I 15.143 ng/mL (0.000-0.060)
[2019-01-12] VITALS (74 sets, daily range): BP systolic 117–197; BP diastolic 57–175
--- NOTE | 2019-01-12 01:06 | NUR ---
PT DENIES ANY FURTHER CHEST PAIN WILL HOLD NITRO AT CURRENT RATE VSS
[2019-01-12 04:25] LABS: BASOPHILS 0.3 % (0-2); EOSINOPHILS 3.4 % (0-7); HEMATOCRIT 34.3 % (36.0-48.0); HEMOGLOBIN 11.4 g/dL (12-16); IMMATURE GRANULOCYTES 0.1 % (0-5); LYMPHOCYTES 16.3 % (15-50); MCHC 33.2 g/dL (31.0-37.0); MCV 90.3 fL (80.0-100.0); MEAN PLATELET VOLUME 9.9 fL (7.4-10.4); MONOCYTES 9.9 % (2-11); PLATELET COUNT 96 10x3/uL (130-400); WBC 6.8 10x3/uL (4.8-10.8)
[2019-01-12 04:53] LABS: CALC OSMOLALITY 286 mosm/kg (275-300); CALCIUM 8.6 mg/dL (8.5-10.1); CARBON DIOXIDE 26.1 mmol/L (21.0-32.0); CHLORIDE - SERUM 105 mmol/L (98-107); CREATINE KINASE 128 UL (21-215); CREATININE - SERUM 0.9 mg/dL (0.6-1.3); GLUCOSE 217 mg/dL (74-106); MAGNESIUM - SERUM 1.8 mg/dL (1.8-2.4); PHOSPHOROUS 2.9 mg/dL (2.5-4.9); POTASSIUM - SERUM 3.6 mmol/L (3.5-5.1); SODIUM 140 mmol/L (136-145); UREA NITROGEN 14 mg/dL (7-18); eGFR NON AFRICAN AMERICAN 64 mL/min (90-120)
[2019-01-12 04:54] LABS: TROPONIN-I 13.171 ng/mL (0.000-0.060)
--- NOTE | 2019-01-12 05:00 | NUR ---
0300 REASSESSMENT DONE SEE FLOW SHEET 0500 IO COLLECTED DAILY WEIGHT COLLECTED
[2019-01-12 05:02] LABS: PLATELET ESTIMATE DECREASED
[2019-01-12 07:20] LABS: FOLATE (FOLIC ACID) - SERUM 15.6 ng/mL (>3.0)
--- NOTE | 2019-01-12 12:06 | NUR ---
NUTRITION F/U PT NOW IN ICU. NPO AT THIS TIME. WILL PROVIDE DIET WHEN RESUMED, MONITOR PO INTAKE. RD FOLLOWING
--- NOTE | 2019-01-12 13:25 | EC ---
PATIENT:ALEIDA COOL DATE OF SERVICE: 01/10/19 SEX: F MEDICAL RECORD: [id number] DATE OF : 40 LOCATION:D[facility] D.230 AGE OF PATIENT: 78 ADMISSION DATE: 01/10/19 REFERRING PHYSICIAN: INTERPRETING PHYSICIAN: LILI DIAMOND MD ECHOCARDIOGRAM REPORT ECHO CHARGES 4 ECHO COMPLETE Date: 01/10/19 CLINICAL DIAGNOSIS: CA ECHOCARDIOGRAPHIC MEASUREMENTS (adult normal given) AC root (d.<3.7cm) 3.1 cm LV Septum d (<1.2 cm> 1.6 cm Valve Excursion 1.6 cm LV Septum (systole) 2.2 cm Left Atria (s.<4.0cm> 3.8 cm LVPW d(<1.2cm) 1.3 cm RV (d.<2.3cm) 2.0 cm LVPW (sytole) 1.9 cm LV diastole(<5.6CM) 4.8 cm MV E-F(>70mm/sec) cm LV systole 2.6 cm LVOT Diameter 1.8 cm MV exc.(>10mm) cm Est.ejection fraction (50-75%) % DOPPLER: LVIT cm/sec A 133 cm/sec E 108 cm/sec LA cm/sec RVSP 34.0 mmHg LVOT 123 cm/sec AOP1/2T m/s Asc. Ao 158 cm/sec RVOT 75.0 cm/sec RA cm/sec PA 94.0 cm/sec AV Gradient Peak 10.0 mmHg AV Mean 5.1 mmHg AV Area 2.0 cm MV Gradient Peak 7.4 mmHg MV Mean 3.0 mmHg MV Area cm COMMENTS: Electrical Installation Inspector: Gladis GILL Cast Iron Drain Pipe Layer: 1 Dr. Diamond TAPE# PACS Pericardial Effusion N DATE OF SERVICE: 01/10/2019 ECHOCARDIOGRAM DATE OF SERVICE: 01/10/2019 FINDINGS: 1. Left ventricular chamber size is within normal limits. Left ventricular systolic function is normal. Overall ejection fraction estimated at 55%. 2. Left atrium, right atrium and right ventricular chamber sizes are within ECHOCARDIOGRAM REPORT [id number] ALEIDA COOL normal limits. 3. Valvular structures have normal structure and motion. 4. Doppler interrogation reveals mild mitral regurgitation, no other valvular insufficiency or stenosis. Pulmonary systolic pressure is estimated at 34 mmHg. 5. No evidence of pericardial effusion or left ventricular thrombus. TRANSINT:[id number] Voice Confirmation ID: [id number] DOCUMENT ID: [id number] LILI DIAMOND MD at 1325 CC: [id number] DICTATION DATE: 01/10/19 1706 PRICER: 01/10/19 1742 ADM IN [facility] [address] [place] [address]
--- NOTE | 2019-01-12 13:25 | OP ---
PATIENT NAME: ALEIDA COOL MEDICAL RECORD: [id number] :40 LOCATION:D.GILMAR D.2307 ADMISSION DATE:01/10/19 SURGEON: LILI ENGLE MD DATE OF OPERATION: 01/10/2019 PROCEDURES: 1. PTCA stent RCA. 2. Left heart catheterization. 3. Selective coronary angiography. 4. Left ventriculogram. INDICATION: Non-Q-wave myocardial infarction. DESCRIPTION OF PROCEDURE IN DETAIL: After informed consent was obtained and after detailed description of risks, benefits as well as alternative therapies, the patient elected to proceed with angiogram and angioplasty. The right radial area was prepped and draped in normal sterile fashion. Right radial artery was cannulated via modified Seldinger technique with placement of 6-Rw[place] sheath. All catheters exchanged through this sheath. FINDINGS: Left ventriculogram was performed in standard 30-degree RAY view, reveals good cardiac wall motion throughout all segments. Overall ejection fraction estimated at 55%. SELECTIVE CORONARY ANGIOGRAPHY: 1. Left main is with no significant angiographic disease. 2. Left anterior descending has a 70% stenosis in the proximal aspect followed by a 90% to 95% stenosis in the distal aspect. 3. Left circumflex has 80% to 90% stenosis throughout the mid portion vessel. 4. The right coronary has 95% to 99% stenosis throughout the mid portion vessel. PTCA STENT OF THE RCA: The stent used going from proximal to distal were 2.5 x 30, 2.5 x 38 and 2.5 x 18, all [place] stents. Result was 0% residual stenosis. OVERALL IMPRESSION: Successful percutaneous transluminal coronary angioplasty stent of the right coronary artery going from 99% initial stenosis to 0% residual. PLAN: For PTCA stent of the LAD and circumflex in the near future. TRANSINT:[id number] Voice Confirmation ID: [id number] DOCUMENT ID: [id number] LILI ENGLE MD at 1325 CC: [id number] DICTATION DATE: 01/10/19 1638 QA REVIEWER: 01/10/19 1728 [place] [address]
--- NOTE | 2019-01-12 18:35 | MORECARE ---
CASE MANAGEMENT DISCHARGE SUMMARY PATIENT: ALEIDA COOL UNIT: [id number] ADM DATE: 01/10/19 AGE: 78 : 40 SEX: F ROOM/BED: D.2307 AUTHOR: FABBY,DOC PHYSICIAN: REFERRING PHYSICIAN: AUDRA BROUSSARD MD DATE OF SERVICE: 01/12/19 Discharge Plan Patient Name: ALEIDA COOL Facility: [facility]:[place] : 1940 Planned Disposition: Home Anticipated Discharge Date: Discharge Date: Expected LOS: Initial Reviewer: [email or web address] Initial Review Date: 01/12/2019 Generated: 01/12/19 7:35 pm Comments DCP- Discharge Planning Updated by [email or web address]: Latrice Sams on 01/12/19 5:[address] Patient Name: ALEIDA COOL Admission Status: ER Accout number: [id number] Admission Date: 01-10-2019 : 1940 Admission Diagnosis:NON-ST ELEVATION (NSTEMI) MYOCARDIAL INFARCTION Attending: AUDRA BROUSSARD Current LOS: 2 Anticipated DC Date: Planned Disposition: Home Primary Insurance: MEDICARE A & B Discharge Planning Comments: CM met with patient and daughter (Cecy) at bedside after explaining CM role and obtaining verbal consent. Patient lives at home with her and plans to return there upon discharge. Patient feels this would be a safe discharge. CM discussed availability / needs of home health and medical equipment. Patient denies any discharge needs at this time. Patient states she will have her family drive her home upon discharge. CM will continue to follow and assist as needed with discharge planning / needs. Licensed Psychologist Manager: Latrice Sams DCPIA - Discharge Planning Initial Assessment Updated by [email or web address]: Latrice Sams on 01/12/19 6:33 pm * Is the patient Alert and Oriented? Yes * How many steps to enter\exit or inside your home? * PCP LEI * Pharmacy [facility] * Preadmission Environment Home with Family * ADLs Independent * Equipment None * List name and contact numbers for known caregivers / representatives who currently or will assist patient after discharge: CECY - DAUGHTER- [phone] [facility] [phone] * Verbal permission to speak to the caregivers and representatives has been obtained from the patient. Yes * Community resources currently utilized None * Additional services required to return to the preadmission environment? No * Can the patient safely return to the preadmission environment? Yes * Has this patient been hospitalized within the prior 30 days at any hospital? No Patient Name: ALEIDA COOL Page 37086 at 1835 All edits/amendments must be made on the electronic document DICTATION DATE: 01/12/191833 HEALTHCARE MARKET CONSULTANT: EVIN 01/12/191833 RPT#: [id number] DC DATE: STATUS: ADM IN [facility] [address] [place] [address] END OF REPORT
[2019-01-13] VITALS (13 sets, daily range): BP systolic 124–191; BP diastolic 56–94
[2019-01-13 03:28] LABS: BASOPHILS 0.3 % (0-2); EOSINOPHILS 3.5 % (0-7); HEMATOCRIT 34.8 % (36.0-48.0); HEMOGLOBIN 11.5 g/dL (12-16); IMMATURE GRANULOCYTES 0.1 % (0-5); LYMPHOCYTES 16.8 % (15-50); MCH 30.1 pg (26.0-34.0); MCV 91.1 fL (80.0-100.0); MEAN PLATELET VOLUME 10.3 fL (7.4-10.4); MONOCYTES 10.8 % (2-11); NEUTROPHILS 68.5 % (40-80); PLATELET COUNT 101 10x3/uL (130-400); RBC 3.82 10x6/uL (4.00-5.40); RDW 14.2 % (11.5-14.5); WBC 6.8 10x3/uL (4.8-10.8)
[2019-01-13 03:36] LABS: CALCIUM 8.7 mg/dL (8.5-10.1); CARBON DIOXIDE 28.5 mmol/L (21.0-32.0); CREATININE - SERUM 0.9 mg/dL (0.6-1.3); MAGNESIUM - SERUM 1.6 mg/dL (1.8-2.4); PHOSPHOROUS 2.8 mg/dL (2.5-4.9); POTASSIUM - SERUM 3.5 mmol/L (3.5-5.1)
--- NOTE | 2019-01-13 12:15 | NUR ---
ASSISTED BACK TO BED VIA ONE NURSE, YOU ANDUJAR. REQUIRED DIRECTION AND LINE MANAGEMENT ONLY
--- NOTE | 2019-01-13 13:50 | NUR ---
REPORT CALLED TO FLOOR NURSE.
--- NOTE | 2019-01-13 14:07 | NUR ---
TRANSFER FROM ICU BY BED. OREINTED TO ROOM. CALL LIGHT IN REACH. FAMILY AT BS. WILL CONT. PLAN OF CARE.
--- NOTE | 2019-01-13 20:25 | NUR ---
INITIAL ROUNDS AND ASSESSMENT COMPLETED. FAMILY X 3 IN ROOM. PT ROUSES TO VERBAL AND PHYSICAL STIMULI AND WHEN FULLY AWAKENED IS ALERT AND ORIENTED, BUT QUICKLY WANTS TO DRIFT BACK TO SLEEP.L PIV SALINE LOCKED TO LEFT A/C. O2 @ 2L/NC WITH NONLABORED RESPIRATIONS. SR 81 PER TELEMETRY. FSBS 194. PT HAS NOT BEEN EATING SO WILL HOLD SLIDING SCALE INSULIN. CALL LIGHT IN REACH. MONITOR AND CPOC.
--- NOTE | 2019-01-14 01:31 | NUR ---
DAUGHTERS X 2 AT BEDSIDE. THEY HAVE GOTTEN PT UP TO BATHROOM AND STATE SHE HAD SEVERAL HOURS WHERE SHE WAS AWAKE AND TALKATIVE AND EVEN AT A POPSICLE. CURRENTLY RESTING WITH EYES CLOSED. MONITOR AND CPOC.
[2019-01-14 03:54] LABS: BASOPHILS 0.5 % (0-2); EOSINOPHILS 5.3 % (0-7); HEMATOCRIT 35.4 % (36.0-48.0); HEMOGLOBIN 11.7 g/dL (12-16); IMMATURE GRANULOCYTES 0.1 % (0-5); LYMPHOCYTES 18.2 % (15-50); MCH 30.5 pg (26.0-34.0); MCHC 33.1 g/dL (31.0-37.0); MCV 92.2 fL (80.0-100.0); MEAN PLATELET VOLUME 10.2 fL (7.4-10.4); MONOCYTES 12.8 % (2-11); NEUTROPHILS 63.1 % (40-80); PLATELET COUNT 119 10x3/uL (130-400); RBC 3.84 10x6/uL (4.00-5.40); RDW 14.5 % (11.5-14.5)
[2019-01-14 03:55] VITALS: BP 154/65
[2019-01-14 03:57] LABS: WBC 8.8 10x3/uL (4.8-10.8)
[2019-01-14 04:08] LABS: ANION GAP 12.5 mmol/L (8-16); CALCIUM 8.6 mg/dL (8.5-10.1); CARBON DIOXIDE 24.9 mmol/L (21.0-32.0); CREATININE - SERUM 1.2 mg/dL (0.6-1.3); MAGNESIUM - SERUM 1.9 mg/dL (1.8-2.4); PHOSPHOROUS 3.1 mg/dL (2.5-4.9); POTASSIUM - SERUM 3.4 mmol/L (3.5-5.1)
[2019-01-14 08:02] VITALS: BP 135/63
--- NOTE | 2019-01-14 09:58 | NUR ---
ALERT AND OREINTED THIS AM. FAMILY AT BS. CALL LIGHT IN REACH. WILL MONITOR NEEDS.
[2019-01-14 11:50] VITALS: BP 150/60
--- NOTE | 2019-01-14 15:05 | NUR ---
UP TO SHOWER WITH SPECTROGRAPHER ASSIST.
--- NOTE | 2019-01-14 15:07 | NUR ---
Rehab Note- Acute Inpatient prescreen order received. The patietn is signed off per PT today being too functional. The patient would have to require 2 therapies for inaptient acute rehab- that being PT, OT, & ST- currently the patient is not receiving any of these 3 therapies. Thank you for this referral! Marielena Workman RN Clinical Liaison, [facility]
[2019-01-14 16:03] VITALS: BP 142/71
[2019-01-14 19:10] VITALS: BP 141/56
--- NOTE | 2019-01-14 19:43 | NUR ---
INITIAL ROUNDS AND ASSESSMENT COMPLETED. PT RESTING IN BED. NO DISTRESS. MONITOR AND CPOC.
--- NOTE | 2019-01-14 20:57 | NUR ---
BEDTIME MEDS GIVEN. PT RESTING WITH DAUGHTER AT BEDSIDE. FSBS 293. DAUGHTER STATES SHE ATE 3 GOOD MEALS TODAY AND ALSO WALKED AND SAT UP IN CHAIR. ADMINISTERED. 6 UNITS OF SLIDING SCALE. WITH DAUGHTER ASSIST, PT PULLED UP AND REPOSITIONED FOR SLEEP. PT TIRED, BUT RESPONDS APPROPRIATELY TO ALL NURSE QUESTIONS. CALL LIGHT IN REACH.
[2019-01-14 23:55] VITALS: BP 146/64
[2019-01-15 03:55] VITALS: BP 159/99
--- NOTE | 2019-01-15 04:20 | NUR ---
RESTING IN BED, DAUGHTER AT BEDSIDE. NO DISTRESS. MONITOR AND CPOC.
[2019-01-15 04:59] LABS: HEMATOCRIT 33.2 % (36.0-48.0); HEMOGLOBIN 11.1 g/dL (12-16); MCH 30.4 pg (26.0-34.0); MCHC 33.4 g/dL (31.0-37.0); MEAN PLATELET VOLUME 10.8 fL (7.4-10.4); PLATELET COUNT 113 10x3/uL (130-400); RBC 3.65 10x6/uL (4.00-5.40); RDW 14.2 % (11.5-14.5); WBC 7.1 10x3/uL (4.8-10.8)
[2019-01-15 05:12] LABS: ANION GAP 10.7 mmol/L (8-16); CALCIUM 8.4 mg/dL (8.5-10.1); CARBON DIOXIDE 28.9 mmol/L (21.0-32.0); POTASSIUM - SERUM 3.6 mmol/L (3.5-5.1)
[2019-01-15 05:21] LABS: BASOPHILS 1 % (0-2); EOSINOPHILS 5 % (0-7); LYMPHOCYTES 21 % (15-50); MONOCYTES 12 % (2-11); NEUTROPHILS 61 % (40-80)
[2019-01-15 05:22] LABS: PLATELET ESTIMATE DECREASED
--- NOTE | 2019-01-15 07:15 | NUR ---
RECEIVED PT IN BED EYES CLOSED RESP UNLABORED SKIN W/D NAD NOTED @ BEDSIDE
[2019-01-15 08:05] VITALS: BP 158/65
[2019-01-15 11:38] VITALS: BP 156/57
--- NOTE | 2019-01-15 12:10 | MORECARE ---
CASE MANAGEMENT DISCHARGE SUMMARY PATIENT: ALEIDA COOL UNIT: [id number] ADM DATE: 01/10/19 AGE: 78 : 40 SEX: F ROOM/BED: D.5884 AUTHOR: FABBY,DOC PHYSICIAN: REFERRING PHYSICIAN: AUDRA BROUSSARD MD DATE OF SERVICE: 01/15/19 Discharge Plan Patient Name: ALEIDA COOL Facility: [facility]:[place] : 1940 Planned Disposition: Home Anticipated Discharge Date: Discharge Date: Expected LOS: Initial Reviewer: [email or web address] Initial Review Date: 01/12/2019 Generated: 01/15/19 1:09 pm Comments DCP- Discharge Planning Updated by [email or web address]: Eliseo Prieto on 01/15/19 11:[address] Patient Name: ALEIDA COOL Encounter No: [id number] : 1940 Primary Insurance: MEDICARE A & B Anticipated DC Date: Planned Disposition: Home DCP follow-up note: CM REVIEWED CHART, THERAPIST IS NOT RECOMMENDING REHAB OR HOME HEALTH. CM MET WITH PT IN ROOM TO DISCUSS DISCHARGE NEEDS AND PLANNING. CM DISCUSSED AVAILABILITY OF HOME HEALTH, REHAB SERVICES AND MEDICAL EQUIPMENT. PT DENIES DISCHARGE NEEDS. SPOUSE TO TRANSPORT HOME AT DISCHARGE. IMPORTANT MESSAGE FROM MEDICARE PROVIDED AND EXPLAINED. CM TO FOLLOW AND ASSIST NEEDED. RAMSEY Lindquist DCP- Discharge Planning Updated by [email or web address]: Latrice Sams on 01/12/19 5:[address] Patient Name: ALEIDA COOL Admission Status: ER Accout number: [id number] Admission Date: 01-10-2019 : 1940 Admission Diagnosis:NON-ST ELEVATION (NSTEMI) MYOCARDIAL INFARCTION Attending: AUDRA BROUSSARD Current LOS: 2 Anticipated DC Date: Planned Disposition: Home Primary Insurance: MEDICARE A & B Discharge Planning Comments: CM met with patient and daughter (Cecy) at bedside after explaining CM role and obtaining verbal consent. Patient lives at home with her and plans to return there upon discharge. Patient feels this would be a safe discharge. CM discussed availability / needs of home health and medical equipment. Patient denies any discharge needs at this time. Patient states she will have her family drive her home upon discharge. CM will continue to follow and assist as needed with discharge planning / needs. Door Frame Builder: Latrice Sams DCPIA - Discharge Planning Initial Assessment Updated by [email or web address]: Latrice Sams on 01/12/19 6:33 pm * Is the patient Alert and Oriented? Yes * How many steps to enter\exit or inside your home? * PCP LEI * Pharmacy [facility] * Preadmission Environment Home with Family * ADLs Independent * Equipment None * List name and contact numbers for known caregivers / representatives who currently or will assist patient after discharge: CECY - DAUGHTER- [phone] SHELBIE CONDON - DAUGHTER- [phone] * Verbal permission to speak to the caregivers and representatives has been obtained from the patient. Yes * Community resources currently utilized None * Additional services required to return to the preadmission environment? No * Can the patient safely return to the preadmission environment? Yes * Has this patient been hospitalized within the prior 30 days at any hospital? No Coverage Notice Reviewer: [id number] Jose D Prieto Notice Issued Date-Time: 01/15/2019 11:50 Notice Type: IM Discharge Notice Notice Delivered To: Patient Relationship to Patient: Waiter Waitress Name: Delivery Method: HAND - Hand Delivered Hemalatha Days: Prior Verbal Notification: Recipient Understood Notice: Yes Recipient Signature: Yes Med Rec Note Co-signed by Attending: Coverage Notice Comment: Last DP export: 01/12/19 5:35 p Patient Name: ALEIDA COOL Page [id number] at 1210 All edits/amendments must be made on the electronic document DICTATION DATE: 01/15/19 1209 PHOTOENGRAVING SUPERVISOR: EVIN 01/15/19 1209 RPT#: [id number] DC DATE: STATUS: ADM IN [facility] [address] [place] [address] END OF REPORT
[2019-01-15] MEDS ORDERED: NORVASC10 MG PO (14:19)
[2019-01-15] MEDS ORDERED: BENICAR20 MG PO (14:20)
[2019-01-15] MEDS ORDERED: HYDRALAZINE HCL50 MG PO (14:20)
[2019-01-15] MEDS ORDERED: TOPROL XL50 MG PO (14:20)
[2019-01-15] MEDS ORDERED: CHLORTHALIDONE25 MG PO (14:21)
--- NOTE | 2019-01-15 15:06 | OP ---
PATIENT NAME: ALEIDA COOL MEDICAL RECORD: [id number] :[birth year] LOCATION:D.M2 D.2114 ADMISSION DATE:01/10/19 SURGEON: JAVY LEAVITT MD DATE OF OPERATION: 01/12/2019 PROCEDURE: FIG WASHER and stent. DESCRIPTION OF PROCEDURE: After 6-Irish sheath was placed in the right femoral artery, XB LAD 3.5 guiding catheter excellent guide catheter support followed probably 300 cm Whisper wire, which was placed across the 90% stenosed distal LAD, 80% stenosed proximal LAD. Stents were placed in the following fashion: 2.5 x 12 Omer drug-eluting stent at 14 atmospheres to the 90% distal stenosis and 3.0 x 12 Omer drug-eluting stent in the proximal portion, with 90% going to no significant residual, 80% stenosis with no significant residual. JAY flow was 3 throughout the procedure. Heparin was used during the case. Sheath was closed with ExoSeal device. TRANSINT:[id number] Voice Confirmation ID: [id number] DOCUMENT ID: [id number] JAVY LEAVITT MD at 1506 CC: [id number] DICTATION DATE: 01/12/19 1325 SENIOR BRANCH MANAGER: 01/12/19 1510 [place] [address]
[2019-01-15] MEDS ORDERED: PRAVACHOL20 MG PO (15:14)
[2019-01-15] MEDS ORDERED: ASPIRIN81 MG PO (15:14)
[2019-01-15 18:48] VITALS: BP 144/72
--- NOTE | 2019-01-15 19:03 | NUR ---
PATIENT ARRIVED ON UNIT VIA HOSPITAL BED WITH STAFF AT SIDE.
--- NOTE | 2019-01-15 19:40 | NUR ---
GREETED PATIENT AND INTRODUCED MYSELF. PATIENT IS SITTING ON SIDE OF BED. FAMILY MEMBER AT BEDSIDE. PATIENT DENIES ANY NEEDS AT THIS TIME. CALL LIGHT IN REACH.
[2019-01-15 20:00] VITALS: BP 153/65
--- NOTE | 2019-01-15 22:38 | NUR ---
PATIENT RESTING QUIETLY WITH EYES CLOSED LAYING ON LEFT SIDE. RESPIRATIONS EVEN. NO S/S OF DISTRESS. SR UP X 2. BED IN LOWEST POSITION. CALL LIGHT IN REACH.
[2019-01-16 04:00] VITALS: BP 148/50
--- NOTE | 2019-01-16 07:21 | NUR ---
CALLED RADIOLOGY TO SEE IF THE REPORT OF THE LEFT ARM DOPPLER WAS FINISHED SINCE IT WAS NOT SHOWING ON NURSE SIDE. RADIOLGY WAS ABLE TO SEE REPORT BUT STATES IT IS STILL IN DRAFT MODE.
--- NOTE | 2019-01-16 08:00 | NUR ---
PT RESTING IN BED, SHIFT ASSESSMENT PERFORMED. DENIES ANY NEEDS AT THIS TIME, WILL CONT TO FOLLOW POC
[2019-01-16 08:49] VITALS: BP 139/58
[2019-01-16 09:40] LABS: HEMATOCRIT 34.3 % (36.0-48.0); HEMOGLOBIN 11.7 g/dL (12-16); MCHC 34.1 g/dL (31.0-37.0); MEAN PLATELET VOLUME 10.6 fL (7.4-10.4); NEUTROPHILS 70.6 % (40-80); PLATELET COUNT 118 10x3/uL (130-400); RBC 3.77 10x6/uL (4.00-5.40); RDW 13.5 % (11.5-14.5); WBC 6.3 10x3/uL (4.8-10.8)
[2019-01-16 09:48] LABS: ANION GAP 11.2 mmol/L (8-16); CALCIUM 8.4 mg/dL (8.5-10.1); CARBON DIOXIDE 28.4 mmol/L (21.0-32.0); POTASSIUM - SERUM 3.6 mmol/L (3.5-5.1)
--- NOTE | 2019-01-16 12:11 | NUR ---
OT NOTE: PT DOING VERY WELL; AMB INTO HALLWAY X 100+ FT; IN ROOM AMBULATION WITH SPV TO PERFORM SINK HYGIENE WHILE STANDING AT SINK AND AMB TO BATHROOM. PT ABLE TO PERFORM TOILET TRANSFERS AND TOILET HYGIENE WITHOUT ASSIST; INDEP WITH FEEDING; SET UP WITH UE DRESSING. PT WANTING TO GO HOME TODAY. CARYL LUNA, OTR/L
--- NOTE | 2019-01-16 12:25 | NUR ---
PT RESTING IN BED. SPOUSE AT BEDSIDE. DENIES ANY NEEDS AT THIS TIME. WILL CONT TO FOLLOW POC
[2019-01-16 13:43] VITALS: BP 141/62
--- NOTE | 2019-01-16 13:45 | NUR ---
FAMILY CAME TO DESK UPSET THAT THEY HAVE NOT BEEN SEEN BY A MD. CALLED BARRETT KABA AND SHE STATES SHE WILL BE AT THE HOSPITAL SOON TO SEE HER. NOTIFIED FAMILY AND PT
[2019-01-16] MEDS ORDERED: CLEOCIN HCL300 MG PO (15:35)
--- NOTE | 2019-01-16 16:07 | NUR ---
DISCHARGE INSTRUCTIONS REVIEWED WITH PT AND ALL QUESTIONS ANSWERED. ASSISTED PT TO FRONT OF HOSPITAL VIA WHEELCHAIR. PT LEFT WITH SPOUSE
--- NOTE | 2019-01-17 10:48 | MORECARE ---
CASE MANAGEMENT DISCHARGE SUMMARY PATIENT: ALEIDA COOL UNIT: [id number] ADM DATE: 01/10/19 AGE: 78 : 40 SEX: F ROOM/BED: D.2104 AUTHOR: FABBY,DOC PHYSICIAN: REFERRING PHYSICIAN: AUDRA BROUSSARD MD DATE OF SERVICE: 01/17/19 Discharge Plan Patient Name: ALEIDA COOL Facility: [facility]:[place] : 1940 Planned Disposition: Home Anticipated Discharge Date: 01/16/19 Discharge Date: 01/16/2019 Expected LOS: 6 Initial Reviewer: [email or web address] Initial Review Date: 01/12/2019 Generated: 01/17/19 11:48 am DCP- Discharge Planning Updated by [email or web address]: Eliseo Prieto on 01/15/19 11:[address] Patient Name: ALEIDA COOL Encounter No: [id number] : 1940 Primary Insurance: MEDICARE A & B Anticipated DC Date: Planned Disposition: Home DCP follow-up note: CM REVIEWED CHART, THERAPIST IS NOT RECOMMENDING REHAB OR HOME HEALTH. CM MET WITH PT IN ROOM TO DISCUSS DISCHARGE NEEDS AND PLANNING. CM DISCUSSED AVAILABILITY OF HOME HEALTH, REHAB SERVICES AND MEDICAL EQUIPMENT. PT DENIES DISCHARGE NEEDS. SPOUSE TO TRANSPORT HOME AT DISCHARGE. IMPORTANT MESSAGE FROM MEDICARE PROVIDED AND EXPLAINED. CM TO FOLLOW AND ASSIST NEEDED. RAMSEY Lindquist DCP- Discharge Planning Updated by [email or web address]: Latrice Sams on 01/12/19 5:[address] Patient Name: ALEIDA COOL Admission Status: ER Accout number: [id number] Admission Date: 01-10-2019 : 1940 Admission Diagnosis:NON-ST ELEVATION (NSTEMI) MYOCARDIAL INFARCTION Attending: AUDRA BROUSSARD Current LOS: 2 Anticipated DC Date: Planned Disposition: Home Primary Insurance: MEDICARE A & B Discharge Planning Comments: CM met with patient and daughter (Cecy) at bedside after explaining CM role and obtaining verbal consent. Patient lives at home with her and plans to return there upon discharge. Patient feels this would be a safe discharge. CM discussed availability / needs of home health and medical equipment. Patient denies any discharge needs at this time. Patient states she will have her family drive her home upon discharge. CM will continue to follow and assist as needed with discharge planning / needs. Fire Protection Engineer: Latrice REED - Discharge Planning Initial Assessment Updated by [email or web address]: Latrice Sams on 01/12/19 6:33 pm * Is the patient Alert and Oriented? Yes * How many steps to enter\exit or inside your home? * PCP LEI * Pharmacy [facility] * Preadmission Environment Home with Family * ADLs Independent * Equipment None * List name and contact numbers for known caregivers / representatives who currently or will assist patient after discharge: CECY - DAUGHTER- [phone] SHELBIE CONDON - DAUGHTER- [phone] * Verbal permission to speak to the caregivers and representatives has been obtained from the patient. Yes * Community resources currently utilized None * Additional services required to return to the preadmission environment? No * Can the patient safely return to the preadmission environment? Yes * Has this patient been hospitalized within the prior 30 days at any hospital? No Coverage Notice Reviewer: [email or web address] Jose D Prieto Notice Issued Date-Time: 01/15/2019 11:50 Notice Type: IM Discharge Notice Notice Delivered To: Patient Relationship to Patient: Supervisor Toy Assembly Name: Delivery Method: HAND - Hand Delivered Hemalatha Days: Prior Verbal Notification: Recipient Understood Notice: Yes Recipient Signature: Yes Med Rec Note Co-signed by Attending: Coverage Notice Comment: Last DP export: 01/15/19 11:09 a Patient Name: ALEIDA COOL Page 72064 at 1048 All edits/amendments must be made on the electronic document DICTATION DATE: 01/17/19 1047 THREAD WINDER: EVIN 01/17/19 1047 RPT#: [id number] DC DATE:01/16/19 STATUS: DIS IN [facility] [address] [place] [address] END OF REPORT
== END 2019-01-16 16:08 | disposition home or self-care (01) | DRG 246 ==
LOC: D.ER 19:26 → D.MS 01-10 00:10 → OBSVTIME 01-10 00:10 → D.MS 01-10 15:12 → D.ICU 01-10 15:12 → D.M2 01-10 16:05 → D.ICU 01-11 22:06 → D.M2 01-13 14:06
PROVIDERS: Family Medicine; Internal Medicine Gastroenterology; Internal Medicine Interventional Cardiology; ADMIT Internal Medicine Nephrology; ATTEND Internal Medicine Nephrology
PROC: B2111ZZ Fluoroscopy of Multiple Coronary Arteries using Low Osmolar Contrast (ICD-10-PCS; 2019-01-10)
PROC: B2151ZZ Fluoroscopy of Left Heart using Low Osmolar Contrast (ICD-10-PCS; 2019-01-10)
PROC: 4A023N7 Measurement of Cardiac Sampling and Pressure, Left Heart, Percutaneous Approach (ICD-10-PCS; 2019-01-10)
PROC: 027036Z Dilation of Coronary Artery, One Artery with Three Drug-eluting Intraluminal Devices, Percutaneous Approach (ICD-10-PCS; principal; 2019-01-10 15:37)
PROC: 027035Z Dilation of Coronary Artery, One Artery with Two Drug-eluting Intraluminal Devices, Percutaneous Approach (ICD-10-PCS; 2019-01-12)
DX: I21.4 Non-ST elevation (NSTEMI) myocardial infarction (principal); D61.818 Other pancytopenia; I10 Essential (primary) hypertension; E11.9 Type 2 diabetes mellitus without complications; E03.9 Hypothyroidism, unspecified; M19.90 Unspecified osteoarthritis, unspecified site; D50.9 Iron deficiency anemia, unspecified; I25.119 Atherosclerotic heart disease of native coronary artery with unspecified angina pectoris; R11.2 Nausea with vomiting, unspecified

== ENCOUNTER → 2019-02-15 09:47 | Outpatient (CLI) | payer MEDICARE, OTHER ==
[~2019-02-15 09:47] MED LIST: ASPIRIN81 MG PO; BENICAR20 MG PO; CATAPRES0.2 MG; CHLORTHALIDONE25 MG PO; CLEOCIN HCL300 MG PO; GLIPIZIDE10 MG PO; GLUCOPHAGE1000 MG PO; HYDRALAZINE HCL50 MG PO; JANUVIA100 MG PO; LEVO-T125 MCG PO; LISINOPRIL40 MG PO; NORVASC10 MG PO; NORVASC2.5 MG PO; PLAVIX75 MG PO; PRAVACHOL20 MG PO; TOPROL XL100 MG PO; TOPROL XL50 MG PO
[2019-02-15 11:03] LABS: HEMATOCRIT 34.6 % (36.0-48.0); HEMOGLOBIN 11.5 g/dL (12-16); LYMPHOCYTES 19.8 % (15-50); MCH 30.8 pg (26.0-34.0); MCHC 33.2 g/dL (31.0-37.0); MCV 92.8 fL (80.0-100.0); MEAN PLATELET VOLUME 10.6 fL (7.4-10.4); NEUTROPHILS 67.9 % (40-80); PLATELET COUNT 104 10x3/uL (130-400); RBC 3.73 10x6/uL (4.00-5.40); RDW 13.5 % (11.5-14.5); WBC 4.8 10x3/uL (4.8-10.8)
[2019-02-15 11:19] LABS: APTT 25.5 SECONDS (22.8-39.4); INR 1.01 (0.85-1.17); PROTIME 12.8 SECONDS (11.6-15.0)
[2019-02-15 11:26] LABS: % SATURATION 18 % (15-55); IRON 60 ug/dl (35-150); TOTAL IRON BIND CAPACITY 330 ug/dl (260-445); UNSAT IRON BIND CAPACITY 270 ug/dl (150-375)
[2019-02-15 11:48] LABS: ALBUMIN 3.5 g/dL (3.4-5.0); ANION GAP 13.2 mmol/L (8-16); BILIRUBIN - DIRECT 0.14 mg/dL (0.00-0.30); BILIRUBIN - INDIRECT 0.33 mg/dL (0.00-1.00); BILIRUBIN - TOTAL 0.47 mg/dL (0.2-1.3); CALCIUM 8.8 mg/dL (8.5-10.1); CARBON DIOXIDE 27.3 mmol/L (21.0-32.0); CHOL - HDL RATIO 3.1 ratio (2.3-4.1); CREATININE - SERUM 1.1 mg/dL (0.6-1.3); LDL-HDL RATIO 1.8 ratio (1.5-3.5); POTASSIUM - SERUM 4.5 mmol/L (3.5-5.1); PROTEIN - SERUM 7.3 g/dL (6.4-8.2)
[2019-02-16 07:14] LABS: HAPTOGLOBIN 121 mg/dL (34-200)
[2019-02-16 12:09] LABS: ANA REFLEX - DIRECT Negative (Negative)
[2019-02-19 13:09] LABS: MITOCHONDRIAL ANTIBODY 166.7 Units (0.0-20.0); SMOOTH MUSCLE ABS (ACTIN) 6 Units (0-19)
== END | disposition home or self-care (01) ==
LOC: D.LAB 09:47 → D.US 11:30
PROVIDERS: ATTEND Internal Medicine Gastroenterology
DX: R16.0 Hepatomegaly, not elsewhere classified (principal)

== ENCOUNTER → 2019-05-03 12:23 | Outpatient (CLI) | payer MEDICARE, OTHER ==
--- NOTE | 2019-05-07 13:29 | EC ---
PATIENT:ALEIDA COOL DATE OF SERVICE: 05/03/19 SEX: F MEDICAL RECORD: [id number] DATE OF : [birth year] LOCATION:D.[facility] AGE OF PATIENT: 78 ADMISSION DATE: 05/03/19 REFERRING PHYSICIAN: INTERPRETING PHYSICIAN: JAVY LEAVITT MD ECHOCARDIOGRAM REPORT ECHO CHARGES 4 ECHO COMPLETE Date: 05/03/19 CLINICAL DIAGNOSIS: CAD/ASSESS EF /VALVES ECHOCARDIOGRAPHIC MEASUREMENTS (adult normal given) AC root (d.<3.7cm) 3.3 cm LV Septum d (<1.2 cm> 1.4 cm Valve Excursion 1.2 cm LV Septum (systole) 1.5 cm Left Atria (s.<4.0cm> 4.0 cm LVPW d(<1.2cm) 1.4 cm RV (d.<2.3cm) 4.1 cm LVPW (sytole) 1.5 cm LV diastole(<5.6CM) 5.0 cm MV E-F(>70mm/sec) cm LV systole 3.7 cm LVOT Diameter 1.6 cm MV exc.(>10mm) cm Est.ejection fraction (50-75%) % DOPPLER: LVIT cm/sec A 90.0 cm/sec E 142 cm/sec LA cm/sec RVSP 36 mmHg LVOT 111 cm/sec AOP1/2T m/s Asc. Ao 146 cm/sec RVOT 77 cm/sec RA cm/sec PA 137 cm/sec AV Gradient Peak 8.49 mmHg AV Mean 4.35 mmHg AV Area 1.9 cm MV Gradient Peak 9.14 mmHg MV Mean 3.10 mmHg MV Area cm COMMENTS: Animal Cytologist: Antony PEGUERO Anthropologist Physical: 3 Dr. Agee TAPE# PACS Pericardial Effusion N DATE OF SERVICE: 05/03/2019 Adequate 2D, color flow, spectral Doppler, and M-Mode. LVH is present. LV internal dimensions are normal. Wall motion is normal. EF is greater than or equal to 55%. Aortic valve is tricuspid. No evidence of stenosis by Doppler interrogation. Left atrium upper limits of normal at 4.8 cm. Mitral valve shows no prolapse. Trace MR. Right-sided chambers grossly normal. Mild TR. ECHOCARDIOGRAM REPORT [id number] ALEIDA COOL TRANSINT:[id number] Voice Confirmation ID: [id number] DOCUMENT ID: [id number] JAVY LEAVITT MD at 1329 CC: [id number] DICTATION DATE: 05/03/19 1344 CIGAR PACKING EXAMINER: 05/03/19 1455 DEP CLI 05/03/19 [place] [id number] [place] [id number]
== END | disposition home or self-care (01) ==
LOC: D.HCCECHO 12:23
PROVIDERS: ATTEND Internal Medicine Interventional Cardiology
DX: I25.10 Atherosclerotic heart disease of native coronary artery without angina pectoris (principal)